=== PATIENT | female | born 1955 | race Caucasian/White ===

== ENCOUNTER 2016-09-19 07:57 | Inpatient (IN) | payer MEDICARE, MEDICAID ==
[~2016-09-19] VITALS: Ht 165.1 cm; Wt 79.8 kg
--- NOTE | ~2016-09-19 | FD ---
ADMIT: 09/19/2016 RM/LOC: 431 [facility] MR#: [id number] [address] [address] JUANA MORRIS [address] [place] [address] [address] [place] [address] Final Diagnosis SEX: F AGE: 61 : 1955 ADMISSION DATE: 09/19/2016 DISCHARGE DATE: 09/20/2016 FINAL DIAGNOSES: 1. Chest pain, status post catheterization, nonobstructive coronary artery disease and a patent stent at the mid RCA with an LVEDP of 10. 2. Renal failure, status post renal cancer and bilateral nephrectomy. 3. Hyperkalemia. 4. Diabetes. 5. Hypertension. 6. Hyperlipidemia. 7. Depression. 8. Prior DVT. 9. Diabetic retinopathy. 10.Diabetic neuropathy. 11.Tobacco dependency. 12.Anemia. 13.Thrombocytopenia. 14.Still having leg pain post hospital discharge. Irvin Howard MD/ sherryl JOB #: [id number] CC: Irvin Howard MD, Attending Physician Yann Anaya MD, Family Physician Yann Anaya MD
--- NOTE | ~2016-09-19 | CATH ---
Cardiac Diagnostic Report Demographics Patient Name ALEXANDRA Wilburn Gender Female Date of 1955 Age 61 year(s) Patient Number [id number] Date of Study 09/20/2016 Visit Number [id number] Room Number 431 [employer] Ht 165.1 cm Wt 79.38 kg Accession Number [id number] BSA 1.87 m kg/m Referring Vincent Carlin Primary Physician Physician MD Jaclyn Tamayo MD Performing Michelle VILLAFANA Secondary Physician Physician Tanmay Diagnostic Michelle VILLAFANA Assisting Physician Physician Tanmay Interventional Michelle VILLAFANA Physician Advertising Statistical Clerk Physician Tanmay Findings and Conclusions Diagnostic Findings and Conclusion Non-obstructive CAD. Patent stent of mRCA. LVEDP= 10 Diagnostic Recommendations Continue with medical management and risk factor modification. Follow up with [facility] provider in 7 days post discharge. Procedure Description The patient was brought to the diagnostic cardiac catheterization laboratory in the fasting, non-sedated state. Informed consent was obtained in the written and verbal form after the risks and benefits were explained. The patient had no further questions and agreed to proceed. The planned puncture-incision site(s) were clipped and prepped with ChloraPrep and draped in the usual sterile manner. Conscious sedation, supplemental oxygen, and pain control medications were delivered by a registered nurse under physician guidance. Surface ECG rhythm, blood pressure measurement, and pulse oximetry were monitored throughout the procedure. Arterial access. The right radial access site was infiltrated with lidocaine. The vessel was entered with the Seldinger technique. A 6F sheath was advanced into the vessel and used for catheter placement. Selective left coronary angiography. A TIG catheter was advanced into the left coronary vessel ostium under Fluoroscopic guidance. Contrast was injected by hand. Images were obtained in multiple projections. Selective right coronary angiography. A TIG catheter was advanced into the right coronary vessel ostium under fluoroscopic guidance. Contrast was injected by hand. Images were obtained in multiple projections. Left heart catheterization. A angled Pigtail catheter was advanced across the aortic valve to the left ventricle under fluoroscopic guidance. Resting hemodynamics were obtained. Hemostasis: The sheath was removed and a TR Band was placed. Hemostasis was achieved with 10 cc air in band. The patient was transferred back to the regular nursing floor via cart accompanied by a nurse. The patient left the laboratory in stable condition. Procedure Procedure Type Diagnostic procedure:Angiography:, Coronary Angios w/[facility] Indications: Chest pain, Hypertension, Hyperlipidemia, Diabetes, Tobacco use-current and Previous stent placement. The procedure was explained in detail to the patient. Risks, complications and alternative treatments were reviewed. Written consent was obtained. Medications Reviewed with Patient prior to Procedure. Complications: No Complication. Angiographic Findings Dominance: Right Cardiac Arteries and Lesion Findings LMCA: Normal (0% Stenosis). LAD: Abnormal. Lesion on Prox LAD: 40% stenosis . LCx: Normal (0% Stenosis). RCA: Abnormal.There is a previous stent on Mid RCA Proximal subsection showing wide patency. Lesion on Mid RCA: Distal subsection.30% stenosis . Comments:Distal to previously placed stent. Lesion on R PDA: Proximal subsection.40% stenosis . Lesion on R PDA: Mid subsection.30% stenosis . Lesion on 1st RPL: Mid subsection.30% stenosis . Ramus: Normal (0% Stenosis). Coronary Tree Procedure Data Procedure Date Date: 09/20/2016Start: 09:19 AMEnd: 09:45 AM Entry Locations - Percutaneous access was performed through the Right Radial artery (Primary location). A 6 Fr sheath was inserted. Hemostasis was successfully obtained using a TR band. Closure Comments: 10 cc air. Procedure Medications Order and Administration + + +-------+--------+ !Time !Medication !Dosage !Route ! + + +-------+--------+ !09/20/2016 !Versed !1 mg !I.V. ! !09:19 AM ! ! ! ! + + +-------+--------+ !09/20/2016 !Fentanyl !25 mcg !I.V. ! !09:20 AM ! ! ! ! + + +-------+--------+ !09/20/2016 !Oxygen !2 l/min!NC ! !09:21 AM ! ! ! ! + + +-------+--------+ !09/20/2016 !SF Radial Cocktail: 200mcg Nitro, 2.5 mg ! !I.A. ! !09:23 AM !Verapamil, 5000u Heparin ! ! ! + + +-------+--------+ !09/20/2016 !Oxygen !4 l/min!NC ! !09:26 AM ! ! ! ! + + +-------+--------+ !09/20/2016 !Sodium Chloride !10 ml !I.V. ! !09:40 AM ! ! ! ! + + +-------+--------+ Devices Used - A6F TIG CATHETERwas used for:Left coronary angiography. - A6F TIG CATHETERwas used for:Right coronary angiography. - ACATH 6FR PIG 145 110CM CATHETERwas used for:LV Pressures. Contrast Material - Isovue 78720 ml Fluoroscopy Time: Diagnostic: 2:00 minutes. Total: 2:00 minutes. Fluoroscopy Dose: Diagnostic: 555 mGy. Total: 555 mGy. Estimated Blood Loss: 8 ml. Medical History Allergies - Morphine. - NSAIDS. - Cephalosporines. - Other:(ESA inhibitors, tobramycin, aminoglycosines). Risk Factors The patient risk factors include:prior PCI on 06/07/2011;peripheral arterial disease, treated hypercholesterolemia, treated hypertension, family history of premature CAD, insulin-treated diabetes mellitus, last creatinine: 6 mg/dl, creatinine clearance: 12.03 ml/min, dyslipidemia, renal failure currently treated with dialysis, Current/Recent(w/in 1 year) tobacco use and prior heart failure . Admission Data Admission Date: 09/19/2016 Admission Time: 09:30 AM Insurance Payors: Medicare. Clinical Evaluation Leading to Procedure Diagnosed on 09/19/2016 04:00 PM. - The patient's CAD presentation was assessed as: Unstable angina. Hemodynamics Condition: Rest O2 Consumption: Estimated: 180.46Heart Rate: 77 bpm Pressures (mmHg) +-----+ + !Site !Pressure ! +-----+ + !AO !106/47 (73) ! +-----+ + !LV !135/0 ,10 ! +-----+ + !AO !136/56 (92) ! +-----+ + !LV !136/1 ,10 ! +-----+ + Valve Gradients and Areas + +---------+---------+---------+ +---------+ + !Valve !Peak !Mean !Area !Index !Flow !Source ! + +---------+---------+---------+ +---------+ + !Aortic !0 !0 ! ! ! ! ! + +---------+---------+---------+ +---------+ + !Aortic !0 !0 ! ! ! ! ! + +---------+---------+---------+ +---------+ + Shunts Oxygen Values O2 Capacity 152.32 O2 Consumption 180.46 Discharge Data Discharge Date: 09/20/2016 Hospital Status: Inpatient Signatures
[2016-09-21] MEDS ORDERED: ABILIFY2 MG PO (17:03)
[2016-09-21] MEDS ORDERED: MIDODRINE HCL5 MG PO (17:03)
[2016-09-21] MEDS ORDERED: ACID CONTROL150 MG PO (17:04)
[2016-09-21] MEDS ORDERED: MELATIN3 MG PO (17:04)
[2016-09-21] MEDS ORDERED: BUPROPION XL300 MG PO (17:04)
[2016-09-21] MEDS ORDERED: DULCOLAX-DPS5 MG PO (17:04)
[2016-09-21] MEDS ORDERED: PHOS-LO667 MG PO ×2 (17:35)
[2016-09-21] MEDS ORDERED: PLAVIX75 MG PO (17:35)
[2016-09-21] MEDS ORDERED: REGLAN-DPS10 MG PO (17:35)
[2016-09-21] MEDS ORDERED: DESYREL DPS100 MG PO (17:36)
[2016-09-21] MEDS ORDERED: LIPITOR DPS10 MG PO (17:36)
[2016-09-21] MEDS ORDERED: PROTONIX40 MG PO (17:36)
[2016-09-21] MEDS ORDERED: RENAGEL800 MG PO (17:36)
[2016-09-21] MEDS ORDERED: MONTELUKAST SOD10 MG PO (17:36)
[2016-09-21] MEDS ORDERED: DEPAKOTE ER250 MG PO (17:36)
[2016-09-21] MEDS ORDERED: XANAX DPS1 MG PO (17:36)
[2016-09-21] MEDS ORDERED: MIRALAX PACKET17 GM PO (17:37)
[2016-09-21] MEDS ORDERED: PROVENTIL HFA6.7 GM IH (17:37)
[2016-09-21] MEDS ORDERED: SPIRIVA18 MCG PO (17:37)
[2016-09-21] MEDS ORDERED: NITROSTAT0.4 MG SL (17:37)
[2016-09-21] MEDS ORDERED: ASA CHILDREN'S81 MG PO (17:38)
--- NOTE | 2016-09-29 08:47 | CO ---
ADMIT: 09/19/2016 RM/LOC: 431 [facility] MR#: [id number] [address] [address] JUANA MORRIS [facility] [address] [place] [id number] Consultation SEX: F AGE: 61 : 1955 DATE OF CONSULTATION: 09/20/2016 ATTENDING PHYSICIAN: Yann Anaya CONSULTING PHYSICIAN: Eder Solano MD REASON FOR CONSULTATION: End-stage renal disease, on hemodialysis; hyperkalemia. HISTORY OF PRESENT ILLNESS: The patient is a 61-year-old female, who is well known to me from the dialysis unit. She typically dialyzes on a Saturday, Saturday, and Saturday schedule. Her last dialysis was yesterday. She has been having anginal symptoms for quite a while. Yesterday on dialysis, she reported chest pain and took nitroglycerin, which did not completely relieve her discomfort. We had to cut her treatment short and she was sent over to the emergency room for further evaluation. She was evaluated by Cardiology, who took her to [facility] earlier this morning. Reportedly, her coronaries were clean and she has insignificant coronary artery disease. She did not have any interventions done. Her left ventricular end-diastolic filling pressures were approximately 10 mmHg. This is per report. She feels fairly well at this time, does not have any chest discomfort. She is accompanied at the bedside by her daughter with whom I discussed her recent issues including depression, hyperkalemia, and ongoing discussions about her dialysis time and thus wanting to increase that. REVIEW OF SYSTEMS: A complete review of systems is negative in detail except as mentioned in the history of present illness above. PAST MEDICAL HISTORY: 1. End-stage renal disease, on hemodialysis on Saturday, Saturday, and Saturday. Access left arm AV fistula. 2. Renal cell carcinoma, status post left nephrectomy and right partial nephrectomy. 3. Coronary artery disease, status post stent placement previously. Recent cardiac cath showed insignificant coronary artery disease. 4. History of CHF. 5. Diabetes mellitus. 6. Hypertension. 7. GERD. 8. COPD, oxygen dependent. 9. Tobacco abuse. 10.Achalasia. 11.Depression. 12.Secondary hyperparathyroidism. 13.Anemia of chronic kidney disease. ALLERGIES: TO ROCEPHIN, CECLOR, MORPHINE, TOBRADEX, ESA INHIBITORS, MOTRIN, CHOCOLATE, CITRUS. ADMIT: 09/19/2016 RM/LOC: 431 [facility] MR#: [id number] [address] [address] JUANA MORRIS [address] [place] [address] Consultation SEX: F AGE: 61 : 1955 MEDICATIONS: Reviewed in the chart next. FAMILY HISTORY: No family history of chronic kidney disease or renal replacement therapy. Cancer runs in her family. SOCIAL HISTORY: She lives by herself. She continues to smoke cigarettes on a daily basis. No alcohol or recreational drug use. PHYSICAL EXAMINATION: VITAL SIGNS: Blood pressure 138/57, pulse 75, temperature 97 Fahrenheit. GENERAL: She is sitting comfortably. She is comfortable on the bed. HEENT: Head is nontraumatic and normocephalic. Extraocular movements are intact. No conjunctival pallor. Dry mucosa. NECK: Supple without any JVD. Chest with expiratory wheezes. CVS: Regular rhythm. S1, S2 heard. No rubs, murmurs, or gallops. ABDOMEN: Soft and nontender. EXTREMITIES: No edema. SKIN: No rash or nodules. NEUROLOGIC: Alert, awake, and oriented x3. Able to move all extremities. PSYCHIATRIC: Affect and memory are within normal limits. VASCULAR: Access, left upper arm AV fistula with good thrill and bruit. LABORATORY DATA: Reviewed. Her potassium is 6.5, CO2 of 28, calcium 8.4. Hemoglobin 11.2. ASSESSMENT AND PLAN: 1. End-stage renal disease, on hemodialysis. 2. Hyperkalemia. ADMIT: 09/19/2016 RM/LOC: 431 [facility] MR#: [id number] 2620 [facility] [address] [place], [place] [address] JUANA MORRIS [address] [place] [address] [place] [address] Consultation SEX: F AGE: 61 : 1955 3. Anemia on chronic kidney disease. 4. Renal osteodystrophy. I will plan for hemodialysis today, predominantly because of her hyperkalemia. We have been discussing increasing her time on dialysis recently because of her persistent hyperkalemia. She continues to refuse and I discussed this issue with her and her daughter again today. We will continue to have discussions about this and hopefully get her to increase her dialysis time for better control of her potassium. Her hemoglobin is otherwise acceptable and I will have her continue her phosphate binders for the time being. Thank you for this consultation, allowing me the opportunity to participate in this patient's care. Please do not hesitate to contact me with any questions. Eder Solano MD/ caroline JOB #: [id number] CC: Yann Anaya, Attending Physician Yann Anaya, Family Physician
--- NOTE | 2016-09-30 12:04 | HP ---
ADMIT: 09/19/2016 RM/LOC: 431 [facility] MR#: [id number] [address] [address] ROSIE MORRIS [address] [address] History and Physical SEX: F AGE: 61 : 1955 DATE OF SERVICE: CHIEF COMPLAINT: Chest pain. HISTORY OF PRESENT ILLNESS: Rosie is a 61-year-old, female, followed by Dr. Anaya in the [facility]. She was admitted to [facility] through the ER after presenting there with chest pain. She states she had a precordial chest pain or heaviness that radiated down the left side and was just like when she had her angioplasty with stent around 8 or 10 years ago. In the ER, she was assessed and treated for angina. Her symptoms resolved. Initial EKG and enzymes were unremarkable other than a new bundle branch block, and she was admitted for further evaluation and management. Given her history of known coronary artery disease, status post angioplasty with stent in the past, Cardiology was formally consulted. At this time, Rosie states she is chest-pain free. Her family is present and state her problem is she does not take care of herself, she walks without using her walker and frequently falls at home, and she continues to smoke 1- 1/2 packs a day. PAST MEDICAL HISTORY: Well documented in her chart, includes numerous surgeries including bilateral nephrectomies for renal cell carcinoma, angioplasty with stent around 2008, incisional hernia repair, cholecystectomy, lumbar laminectomy, tubal ligation with reanastomosis, diabetes mellitus type 2, hypertension, renal failure currently on dialysis, status post bilateral nephrectomies. She is followed by Dr. Solano. She has a history of prior depression with suicide attempt and prior deep venous thromboses, diabetic retinopathy and neuropathy along with tobacco dependency of 1-1/2 packs a day. MEDICATIONS: On admission are listed and include: 1. Midodrine 10 mg t.i.d. 2. Bisacodyl 5 mg in the morning. 3. Aripiprazole 2 mg at bedtime. 4. Wellbutrin 300 mg XL daily. 5. Melatonin 3 mg at bedtime. 6. Ranitidine 150 mg b.i.d. 7. Plavix 75 mg daily. 8. Calcium 1334 mg. 9. Phosphate binder t.i.d. 10.Calcium acetate 667 mg with snacks. 11.Reglan 10 mg t.i.d. 12.Renvela 3200 mg t.i.d. 13.Atorvastatin 10 mg at bedtime. 14.Trazodone 100 mg at bedtime. 15.Protonix 40 mg b.i.d. 16.Montelukast 10 mg daily. 17.Depakote extended release 250 mg in the morning. 18.Alprazolam 1 mg t.i.d. 19.Nitrostat 0.4 mg p.r.n. ADMIT: 09/19/2016 RM/LOC: 431 [facility] MR#: [id number] [address] [address] [place] [address] History and Physical SEX: F AGE: 61 : 1955 20.MiraLax 1 capful in 8-ounce fluid daily. 21.Spiriva 1 inhalation daily. 22.Albuterol 2 puffs q.i.d. p.r.n. ALLERGIES: INCLUDE EAS INHIBITORS, NSAIDS, CEPHALOSPORINS, AMINOGLYCOSIDES, MORPHINE, IBUPROFEN, AND TOBRAMYCIN. SOCIAL HISTORY: Is that of a disabled 61-year-old, female. She continues to smoke 1-1/2 pack of cigarettes daily and does not drink. She lives independently but is noncompliant, continues to fall repeatedly because she does not use a walker. FAMILY HISTORY: Remarkable for diabetes, heart failure in her father who of an ND. Stomach cancer, breast cancer, pulmonary emboli, asthma, and heart problems in her mother. REVIEW OF SYSTEMS: Remarkable for renal failure, on dialysis, diabetic retinopathy, diabetic neuropathy, continued falls due to problems with ambulation, pain in her extremities, and non-use of her walker. Depression is reasonably well controlled. She is admitted with her chest pain, rule out ND. Remainder of review of systems is negative. PHYSICAL EXAMINATION: VITAL SIGNS: Include temperature 96.7, pulse 80, respiratory rate 18, blood pressure 174/83, sat 95%. GENERAL APPEARANCE: Is that of a 61-year-old, female, who is alert and oriented, appears stated age. Affect is appropriate. HEENT: Pupils are reactive. Extraocular muscles intact. TMs are unremarkable. Membranes are moist. NECK: Without nodes or masses. HEART: Regular without murmur. LUNGS: Clear. ABDOMEN: Soft, nontender, benign. BREASTS: Deferred. GENITOURINARY: Deferred. RECTAL: Deferred. EXTREMITIES: Reveal no clubbing, cyanosis, edema or tracks. NEUROLOGIC: Exam is normal including light touch, strength, and DTRs. LABORATORY AND X-RAY DATA: Include sodium of 138, potassium 4.4, BUN of 26, creatinine 4.0, glucose 94, calcium is 8.5, magnesium of 2.1. Initial CPK with MB and troponin I are normal. White count is 4.5, hemoglobin 11.2, platelet count of 130,000. Chest x-ray shows no acute changes, and EKG shows normal sinus rhythm with an incomplete bundle. ASSESSMENT: Chest pain, rule out myocardial infarction with history of known coronary artery disease. Other problems include: 1. Renal failure, status post renal cancer and bilateral nephrectomy, currently on hemodialysis, followed by Dr. Solano. ADMIT: 09/19/2016 RM/LOC: 431 [facility] MR#: [id number] [address] [place] [address] [place], [place] [address] ROSIE MORRIS [address] [place] [address] History and Physical SEX: F AGE: 61 : 1955 2. Diabetes mellitus type 2. 3. Benign essential hypertension. 4. Hyperlipidemia. 5. Depression. 6. Prior deep venous thrombosis. 7. Diabetic retinopathy. 8. Diabetic neuropathy. 9. Tobacco dependency, currently 1-1/2 packs daily. PLAN: Cardiology and Nephrology consults obtained. Serial cardiac enzymes and EKGs ordered with Accu-Chek monitoring before meals at bedtime. Obtain Physical and Occupational Therapy consults, fit her for a wheeled walker, arrange a home lifeline. Obtain fasting lipids in the morning and proceed with further evaluation and management based on course during hospitalization. Please see her hospital record for the details. Tristan Howard MD/ caroline JOB #: [id number] CC: Yann Anaya, Attending Physician Yann Anaya, Family Physician
--- NOTE | 2016-10-18 16:58 | CO ---
ADMIT: 09/19/2016 RM/LOC: 431 [facility] MR#: [id number] [address] [facility] [address] [place], [place] [address] ROSIE MORRIS [address] [facility] [address] [place] [id number] Consultation SEX: F AGE: 61 : 1955 DATE OF CONSULTATION: 09/19/2016 ATTENDING PHYSICIAN: Yann Anaya CONSULTING PHYSICIAN: Michael Cunningham MD REASON FOR CONSULT: Chest pain. Joanna Valentino RN, scribing for Dr. Michael Cunningham. HISTORY OF PRESENT ILLNESS: Rosie is a pleasant 61-year-old female I have been asked to see in Cardiology consultation by Dr. Tristan Howard for chest discomfort. She follows regularly with [facility] and follows with Dr. James Kaur. She was last seen on March 27, 2016, with echocardiogram after that showing normal ejection fraction, mild LVH and normal valvular function. She follows regularly in [facility] for her history of coronary artery disease. Last cardiac catheterization in 2010 resulting in stenting with drug-eluting stent to her mid RCA. She does have nonobstructive disease to her LAD 30% mid and 50% stenosis of right coronary artery past her stenting. Last echocardiogram was again on April 03 of last year. She also has history of systolic heart failure with EF as low as 40% in 2009. She has history of type 2 diabetes, hypertension, peripheral vascular disease, and hyperlipidemia. She has end-stage renal disease on hemodialysis as well. Rosie presented to [facility] this morning by EMS from dialysis for chest discomfort. On discussion with her she reports that over the last few months. She has been having chest pain off and on requiring nitroglycerin at home to take away her symptoms. This always occurs at rest. She describes it as a sharp pain radiating from the center of her chest through to her back. She is short of breath and diaphoretic with that. She would take a sublingual nitroglycerin at home and after rest with that it would eventually resolve. She reports that she was at dialysis this morning when this happened. They did give her sublingual nitroglycerin. It did not take away her pain today, so they called EMS. She then was given aspirin in the ambulance, and her pain went away, and she denies any further episodes of chest discomfort. Cardiac enzymes have been checked x1 and are negative. Her EKG does show a new right bundle-branch block. Creatinine is around her baseline at 4.0. Currently, she is pain free. She denies any shortness of breath, palpitations, presyncope, peripheral edema, or orthopnea. She is limited mostly by leg pain from chronic back issues and has been working with physical therapy for this; however, she does describe severe pain with activity so she is very limited. PAST MEDICAL HISTORY: Osteoarthritis, chronic muscle and joint pain, chronic back pain, end-stage renal disease on hemodialysis, gallbladder disease status post cholecystectomy, difficulty swallowing requiring Reglan to help with esophageal motility, gastroesophageal reflux disease, tobacco use, hypertension, hyperlipidemia, diabetes, and nocturnal hypoxia requiring O2. ADMIT: 09/19/2016 RM/LOC: 431 [facility] MR#: [id number] [address] [address] ROSIE MORRIS [address] [place] [address] Consultation SEX: F AGE: 61 : 1955 PAST SURGICAL HISTORY: Includes fistula revision, esophageal surgery, hiatal hernia repair, unilateral nephrectomy, sinus surgery, cholecystectomy, tubal reconstruction, and lower laminectomy. ALLERGIES: MULTIPLE ALLERGIES INCLUDING ROCEPHIN, CECLOR, MORPHINE, TOBRADEX, ESA INHIBITORS, AND NSAIDS. MEDICATIONS: Current medications include: 1. Abilify 2 mg at bedtime. 2. Depakote 250 p.o. daily. 3. Desyrel 100 p.o. at bedtime. 4. Dulcolax 5 daily. 5. Lipitor 10 at bedtime. 6. Melatonin 3 at bedtime. 7. MiraLax 17 g p.o. daily. 8. Pepcid 20 p.o. b.i.d. 9. PhosLo 1334 t.i.d. with meals. 10.Plavix 75 p.o. at bedtime. 11.ProAmatine 10 t.i.d. 12.Protonix 40 b.i.d. 13.Reglan 10 t.i.d. with meals. 14.Renagel 3200 mg p.o. t.i.d. with meals. 15.Singulair 10 p.o. daily. 16.Wellbutrin 300 p.o. daily. 17.Xanax 1 mg p.o. t.i.d. 18.Spiriva 18 mcg inhalation daily. 19.Lovenox 30 mg subcu daily. 20.NovoLog low-dose sliding scale before meals and at bedtime. 21.Habitrol 21 mg topically daily. FAMILY HISTORY: Family history of COPD, cancer, PE, diabetes, stroke, and coronary disease in multiple family members. SOCIAL HISTORY: Rosie lives at home. She is on disability for her end-stage renal disease, on hemodialysis. She has 3 children. She smokes about a pack and half a day and has done so for 41 years. REVIEW OF SYSTEMS: Denies increased fatigue, recent fever, chills, or sweats or weight changes. EYES: Denies double vision, blurred vision, cataracts, or glaucoma. THROAT, MOUTH, AND EARS: Denies hearing loss or problems with nose, mouth or throat. RESPIRATORY: Has nocturnal hypoxia. Uses oxygen at night. Denies any hemoptysis. GASTROINTESTINAL: Has issues with dysmotility of her esophagus requiring Reglan prior to meals. She also has history of gastroesophageal reflux disease and gallbladder disease status post cholecystectomy. Denies any blood in her ADMIT: 09/19/2016 RM/LOC: 431 [facility] MR#: [id number] [address] [facility] [address] [place], [place] [address] ROSIE MORRIS [facility] [address] [place] [address] Consultation SEX: F AGE: 61 : 1955 stools. GENITOURINARY: She does not produce urine. She is on hemodialysis. MUSCULOSKELETAL: History of osteoarthritis, chronic muscle and joint pain, and chronic back pain. Denies gout. ENDOCRINE: History of diabetes. Denies thyroid disease. Last hemoglobin A1c was 4. HEMATOLOGY: Denies history of anemia, easy bruising, or cancer. NEUROLOGIC: Denies chronic headaches, dizziness, syncope, stroke, seizures or numbness or tingling. PSYCHIATRIC: History of depression and anxiety. PHYSICAL EXAMINATION: VITAL SIGNS: Blood pressure 174/83, heart rate 80, respirations 18, temperature 96.7, and oxygenation 95% on O2. SKIN: [place], warm and dry. EYES: Sclerae clear. No xanthelasmas. ENT: Oral mucosa is pink and moist. No jugular venous distention or carotid bruits. CHEST: Respirations are even and unlabored. Lungs are clear to auscultation. HEART: Regular rate and rhythm. Normal S1, S2. No murmurs, rubs or gallops. ABDOMEN: Soft and nontender. MUSCULOSKELETAL: Gait is normal. EXTREMITIES: Peripheral pulses palpable. No clubbing, cyanosis or edema. PSYCHIATRIC: Alert and oriented. Mood and affect are appropriate. DIAGNOSTIC DATA: Chest x-ray on 09/19, shows no acute process. Sodium 138, potassium 4.4, BUN 26, creatinine 4.0, glucose 94, TSH 2.5, CK 27, MB 0.9. Troponin less than 0.015. White blood cell count 4.5, hemoglobin 11.2, hematocrit 34.7, and platelets 130. ASSESSMENT AND PLAN: 1. Chest pain. 2. Coronary artery disease with right coronary artery stent. 3. Hyperlipidemia. 4. End-stage renal disease, on hemodialysis. 5. Tobacco use. I recommend further evaluation with heart catheterization given her symptoms being concerning for coronary artery disease, and she is requiring nitroglycerin on a regular basis. She will need to continue with risk factor treatment as well. I discussed with her the procedure of cardiac catheterization including risks, benefits, and alternatives with risks ADMIT: 09/19/2016 RM/LOC: 431 [facility] MR#: [id number] [address] [place], [place] [address] ROSIE MORRIS [address] [place] [address] [place] [address] Consultation SEX: F AGE: 61 : 1955 including, but not limited to bleeding, infection, vessel damage, reaction to contrast dye, stroke, myocardial infarction, rarely loss of life. The patient states understanding and wishes to proceed. She will have cardiac catheterization by Dr. Martinez in the morning and be n.p.o. after midnight. I will continue to monitor cardiac enzymes. I would like her to be started on aspirin daily. Thank you for the consultation. I have read and agree with the documentation that has been completed regarding this visit. By signing this record, I attest that the documentation was completed in my physical presence and is an accurate record of the encounter. Joanna Valentino RN / Michael Cunningham MD / caroline JOB #: [id number] CC: Yann Anaya, Attending Physician Yann Anaya, Family Physician
--- NOTE | 2016-11-03 07:39 | ER ---
ADMIT: 09/19/2016 RM/LOC: 431 [facility] MR#: [id number] [id number] [place], [place] [address] JUANA MORRIS [address] [place] [address] Emergency Room Report SEX: F AGE: 61 : 1955 DATE: 09/19/2016 See T-sheet for complete H and P. ADDENDUM: The patient is a 61-year-old female, presents to the ER complaining of abdominal pain that began 30 to 40 minutes ago during dialysis. She was short of breath with this, sharp stabbing pain in the center of her chest. Her past medical history is noted on the T-sheet as is her physical exam. Laboratory showed normal cardiac enzymes, unremarkable chemistries. EKG showed sinus rhythm, with what looks like a first-degree AV block and right bundle. The patient will be admitted to Dr. Howard's service with a diagnosis of chest pain for further workup. She is admitted in stable condition. Kaleb Land MD/ caroline JOB #: [id number] CC: Irvin Howard MD, Attending Physician Yann Anaya MD, Family Physician
== END 2016-09-20 18:30 | disposition home health service (06) | DRG 286 ==
LOC: ER 07:57 → 4PCU 09:30
PROVIDERS: ADMIT Family Medicine
PROC: B2111ZZ Fluoroscopy of Multiple Coronary Arteries using Low Osmolar Contrast (ICD-10-PCS; principal; 2016-09-19)
PROC: 4A023N7 Measurement of Cardiac Sampling and Pressure, Left Heart, Percutaneous Approach (ICD-10-PCS; principal; 2016-09-19)
PROC: 5A1D00Z (ICD-10-PCS; 2016-09-20)
DX: I25.119 Atherosclerotic heart disease of native coronary artery with unspecified angina pectoris (principal); N18.6 End stage renal disease; I13.2 Hypertensive heart and chronic kidney disease with heart failure and with stage 5 chronic kidney disease, or end stage renal disease; E11.22 Type 2 diabetes mellitus with diabetic chronic kidney disease; I50.20 Unspecified systolic (congestive) heart failure; I45.10 Unspecified right bundle-branch block; E87.5 Hyperkalemia; F32.9 Major depressive disorder, single episode, unspecified; F17.210 Nicotine dependence, cigarettes, uncomplicated; E11.40 Type 2 diabetes mellitus with diabetic neuropathy, unspecified; E11.319 Type 2 diabetes mellitus with unspecified diabetic retinopathy without macular edema; E11.51 Type 2 diabetes mellitus with diabetic peripheral angiopathy without gangrene; J44.9 Chronic obstructive pulmonary disease, unspecified; D63.1 Anemia in chronic kidney disease; R09.02 Hypoxemia; F41.9 Anxiety disorder, unspecified; K22.4 Dyskinesia of esophagus; E21.3 Hyperparathyroidism, unspecified; K21.9 Gastro-esophageal reflux disease without esophagitis; M19.90 Unspecified osteoarthritis, unspecified site; Z99.2 Dependence on renal dialysis; Z90.5 Acquired absence of kidney; Z86.718 Personal history of other venous thrombosis and embolism; Z95.5 Presence of coronary angioplasty implant and graft; Z85.528 Personal history of other malignant neoplasm of kidney; Z91.19 Patient's noncompliance with other medical treatment and regimen; Z91.81 History of falling; Z82.49 Family history of ischemic heart disease and other diseases of the circulatory system; Z99.81 Dependence on supplemental oxygen; Z79.4 Long term (current) use of insulin